=== PATIENT | female | born 1995 | race Two or more races ===

== ENCOUNTER 2018-07-25 16:36 | Emergency (ER) | payer MEDICAID, OTHER ==
[~2018-07-25] VITALS: Ht 152.4 cm; Wt 87.2 kg
[~2018-07-25 16:36] MED LIST: ACET650T17; ALBU6.7H INH; HYDR-3240; ONDA4TAB7
[2018-07-25 17:11] LABS: BASOPHILS # (AUTO) 0.03 x10^3/uL (0-0.1); BASOPHILS % (AUTO) 0 % (0-1); EOSINOPHILS # (AUTO) 0.13 x10^3/uL (0-0.4); EOSINOPHILS % (AUTO) 2 % (1-7); LYMPHOCYTES % (AUTO) 21 % (22-44); MD NO; MEAN CORPUSCULAR HEMOGLOBIN 30.1 pg (27.0-34.8); MEAN CORPUSCULAR HGB CONC 33.2 g/dL (32.4-35.8); MEAN CORPUSCULAR VOLUME 90.6 fL (80-100); MEAN PLATELET VOLUME 10.3 fL (7.4-10.4); MONOCYTES # (AUTO) 0.37 x10^3/uL (0.2-0.8); MONOCYTES % (AUTO) 5 % (2-9); NEUTROPHILS # (AUTO) 6.02 x10^3/uL (1.8-6.8); NEUTROPHILS % (AUTO) 73 % (42-75); PLATELET COUNT 293 x10^3/uL (130-400); RED BLOOD COUNT 4.98 x10^6/uL (3.82-5.3); RED CELL DISTRIBUTION WIDTH 14.8 % (9.6-15.2)
--- NOTE | 2018-07-25 17:15 | NUR ---
US AT BEDSIDE
[2018-07-25 17:18] LABS: ALANINE AMINOTRANSFERASE 18 U/L (12-78); ALBUMIN 3.7 g/dL (3.4-5.0); ANION GAP 8 mmol/L (5-15); CALCIUM 8.9 mg/dL (8.5-10.1); CHLORIDE 109 mmol/L (98-107); CREATININE 0.83 mg/dL (0.55-1.02)
[2018-07-25 17:20] LABS: ALKALINE PHOSPHATASE 98 U/L (45-117); BILIRUBIN,TOTAL 0.3 mg/dL (0.2-1.0); TOTAL PROTEIN 7.7 g/dL (6.4-8.2)
--- NOTE | 2018-07-25 17:40 | NUR ---
UA SENT, PA AT BEDSIDE
[2018-07-25 17:54] LABS: HCG UR SG 1.011 (1.003-1.030); MICROSCOPIC NOT IND
[2018-07-25 17:57] LABS: CULTURE INDICATED? NO
[2018-07-25 18:49] VITALS: BP 128/62
== END 2018-07-25 19:18 | disposition home or self-care (01) ==
LOC: ED 17:33
DX: G89.29 Other chronic pain (principal); R10.12 Left upper quadrant pain; R19.7 Diarrhea, unspecified
CPT/HCPCS: 36415; 76700; 80053; 81003; 81025; 83690; 85025; 99284

== ENCOUNTER 2019-11-17 21:57 | Emergency (ER) | payer OTHER ==
[~2019-11-17] VITALS: Ht 154.9 cm; Wt 83.0 kg
[~2019-11-17 21:57] MED LIST changes: -ALBU6.7H INH; +ALBU6.7H8 INH
--- NOTE | 2019-11-17 22:14 | NUR ---
PT IN ROOM WITH BOYFRIEND AT PT SIDE, PT STATED "SHE IS SEVINTEEN WEEKS AND IS HAVING SHARP CENTERED ABD PAIN BUT HAS FELT THE BABY MOVE ND PT DENIED ANY SPOTTING"
[2019-11-17] MEDS ORDERED: CEFTRIAXONE 1,000 MG IM ONE (23:30)
[2019-11-17 23:39] LABS: BASOPHILS # (AUTO) 0.03 x10^3/uL (0-0.1); BASOPHILS % (AUTO) 0 % (0-1); EOSINOPHILS # (AUTO) 0.07 x10^3/uL (0-0.4); EOSINOPHILS % (AUTO) 1 % (1-7); LYMPHOCYTES # (AUTO) 2.23 x10^3/uL (1-3.4); LYMPHOCYTES % (AUTO) 17 % (22-44); MD NO; MEAN CORPUSCULAR HEMOGLOBIN 30.8 pg (27.0-34.8); MEAN CORPUSCULAR HGB CONC 33.1 g/dL (32.4-35.8); MEAN PLATELET VOLUME 9.7 fL (7.4-10.4); MONOCYTES # (AUTO) 0.41 x10^3/uL (0.2-0.8); MONOCYTES % (AUTO) 3 % (2-9); NEUTROPHILS # (AUTO) 10.33 x10^3/uL (1.8-6.8); NEUTROPHILS % (AUTO) 79 % (42-75); PLATELET COUNT 245 x10^3/uL (130-400); RED BLOOD COUNT 3.96 x10^6/uL (3.82-5.3); RED CELL DISTRIBUTION WIDTH 13.8 % (9.6-15.2)
[2019-11-17 23:48] LABS: ALBUMIN 2.8 g/dL (3.4-5.0); ANION GAP 8 mmol/L (5-15); CALCIUM 8.8 mg/dL (8.5-10.1); CHLORIDE 108 mmol/L (98-107)
[2019-11-17 23:52] LABS: ALANINE AMINOTRANSFERASE 17 U/L (12-78); ALKALINE PHOSPHATASE 79 U/L (45-117); BILIRUBIN,TOTAL 0.3 mg/dL (0.2-1.0); CREATININE 0.52 mg/dL (0.55-1.02); TOTAL PROTEIN 6.7 g/dL (6.4-8.2)
[2019-11-17 23:56] LABS: MICROSCOPIC INDICATED
[2019-11-18] MEDS ORDERED: CEFTRIAXONE 250 MG ONE (00:11)
--- NOTE | 2019-11-18 00:23 | NUR ---
PT IN ROOM WITH TECH
[2019-11-18 02:47] VITALS: BP 120/68
== END 2019-11-18 02:49 | disposition home or self-care (01) ==
LOC: ED 11-18 01:46
DX: O26.892 Other specified pregnancy related conditions, second trimester (principal); R10.31 Right lower quadrant pain; R11.0 Nausea; Z3A.17 17 weeks gestation of pregnancy
CPT/HCPCS: 36415; 76700; 80053; 81001; 85025; 87086; 96372; 99284; J0696

== ENCOUNTER 2020-03-02 15:34 | Outpatient (CLI) | payer BC, OTHER ==
[~2020-03-02] VITALS: Ht 154.9 cm; Wt 96.4 kg
[2020-03-02 16:20] LABS: MICROSCOPIC INDICATED
[2020-03-02] MEDS ORDERED: LACTATED RINGERS 1,000 ML IVBOLUS ONE (17:00)
[2020-03-02] MEDS ORDERED: TERBUTALINE 1 MG/ML, 1ML SQ ONE (17:00)
[2020-03-02] MEDS ORDERED: BETAMETHASONE 6 MG/ML, 5ML IM ONE ×2 (18:29→18:30)
[2020-03-02] MEDS ORDERED: PREN1TAB60 PO (19:31)
[2020-03-02] MEDS ORDERED: NIFE10CA49 PO (19:40)
== END 2020-03-02 21:03 | disposition home or self-care (01) ==
LOC: LDOP 15:34
PROVIDERS: ATTEND Obstetrics & Gynecology
DX: O60.03 Preterm labor without delivery, third trimester (principal); Z3A.32 32 weeks gestation of pregnancy
CPT/HCPCS: 59025; 81001; 87086; 96360; 96361; 96372; J0702; J3105; J7120

== ENCOUNTER 2020-03-03 18:36 | Outpatient (CLI) | payer SELFPAY ==
[~2020-03-03] VITALS: Ht 154.9 cm; Wt 96.3 kg
[~2020-03-03 18:36] MED LIST changes: +NIFE10CA49 PO; +PREN1TAB60 PO
[2020-03-03] MEDS ORDERED: BETAMETHASONE 6 MG/ML, 5ML IM ONE (19:00)
[2020-03-03 19:22] VITALS: BP 107/57
== END 2020-03-03 20:00 | disposition home or self-care (01) ==
LOC: LDOP 18:36
PROVIDERS: ATTEND Obstetrics & Gynecology
DX: O60.03 Preterm labor without delivery, third trimester (principal); Z3A.32 32 weeks gestation of pregnancy
CPT/HCPCS: 59025; 96372; J0702

== ENCOUNTER 2020-03-10 22:25 | Outpatient (CLI) | payer SELFPAY ==
[~2020-03-10] VITALS: Ht 154.9 cm; Wt 96.4 kg
[2020-03-10 23:01] VITALS: BP 116/62
[2020-03-10 23:03] LABS: MICROSCOPIC INDICATED
[2020-03-11] MEDS ORDERED: NITROFURANTOIN (MACROBID) 100 MG CAPSULE ONE (00:14)
[2020-03-11] MEDS ORDERED: NITROFURANTOIN (MACROBID) 100 MG CAPSULE PO ONE (00:30)
== END 2020-03-11 00:32 | disposition home or self-care (01) ==
LOC: LDOP 22:25
PROVIDERS: ATTEND Obstetrics & Gynecology
DX: O26.893 Other specified pregnancy related conditions, third trimester (principal); R10.9 Unspecified abdominal pain; Z3A.33 33 weeks gestation of pregnancy
CPT/HCPCS: 59025; 81001; 87086

== ENCOUNTER 2020-03-23 12:12 | Outpatient (CLI) | payer SELFPAY ==
[2020-03-23 13:14] VITALS: BP 124/63
[2020-03-23 13:24] LABS: MICROSCOPIC INDICATED
== END 2020-03-23 13:58 | disposition home or self-care (01) ==
LOC: LDOP 12:12
PROVIDERS: ATTEND Obstetrics & Gynecology
DX: O42.913 Preterm premature rupture of membranes, unspecified as to length of time between rupture and onset of labor, third trimester (principal); Z3A.35 35 weeks gestation of pregnancy
CPT/HCPCS: 59025; 81001; 84112; 87086

== ENCOUNTER 2020-04-08 07:52 | Outpatient (CLI) | payer SELFPAY ==
[~2020-04-08] VITALS: Ht 154.9 cm; Wt 105.5 kg
[~2020-04-08 07:52] MED LIST changes: +HYDR-1067; -HYDR-3240
[2020-04-08 08:12] VITALS: BP 127/73
[2020-04-08 09:08] LABS: MICROSCOPIC NOT IND
[2020-04-08] MEDS ORDERED: ACETAMINOPHEN 325 MG TABLET ONE (10:39)
[2020-04-08] MEDS ORDERED: ACETAMINOPHEN 500 MG TABLET PO PRN (11:00)
== END 2020-04-08 11:09 | disposition home or self-care (01) ==
LOC: LDOP 07:52
PROVIDERS: ATTEND Obstetrics & Gynecology
DX: O26.893 Other specified pregnancy related conditions, third trimester (principal); R10.9 Unspecified abdominal pain; Z3A.37 37 weeks gestation of pregnancy
CPT/HCPCS: 59025; 81003